=== PATIENT | male | born 2000 | race Two or more races ===

== ENCOUNTER 2020-02-23 17:29 | Emergency (ER) | payer OTHER, BC ==
[~2020-02-23] VITALS: Ht 180.3 cm; Wt 59.0 kg
[2020-02-23 20:55] VITALS: BP 112/66
== END 2020-02-23 21:04 | disposition home or self-care (01) ==
LOC: ER 17:29
DX: S43.401A Unspecified sprain of right shoulder joint, initial encounter (principal); S23.41XA Sprain of ribs, initial encounter; V69.9XXA Occupant (driver) (passenger) of heavy transport vehicle injured in unspecified traffic accident, initial encounter; Y93.89 Activity, other specified; Y92.89 Other specified places as the place of occurrence of the external cause; Y99.8 Other external cause status
CPT/HCPCS: 71101; 73030